=== PATIENT | female | born 1985 | race Hispanic/Latino ===

== ENCOUNTER 2022-11-13 21:08 | Emergency (ER) | payer BC ==
[2022-11-13 22:21] LABS: #Eosinphils 0.1 thou/uL (0.0-0.7); #Monocytes 0.7 thou/uL (0.11-0.59); #Neutrophils 9.9 thou/uL (1.40-6.50); %Basophils 0.1 % (0.0-1.0); %Eosinophils 0.7 % (0.0-10.0); %Lymphocytes 15.6 % (21.0-51.0); %Monocytes 5.6 % (0.0-10.0); %Neutrophils 77.7 % (42.0-75.0); Hemoglobin 14.1 g/dL (12.0-16.0); Mean Corpuscular HGB CONC 33.4 g/dL (32.0-36.0); Mean Corpuscular Hemoglobin 28.7 pg (27.0-31.0); Mean Corpuscular Volume 85.8 fl (78.0-98.0); Mean Platelet Volume 11.9 fL (7.4-10.4); Platelet Count 198 10x3/uL (130-400); RBC Distribution Width 13.3 % (11.5-14.5); Red Blood Cell (RBC) Count 4.92 mill/uL (4.20-5.40); White Blood Cell (WBC) Count 12.7 10x3/uL (4.8-10.8)
[2022-11-13 22:30] LABS: BHCG - Serum Negative (NEGATIVE); Pregs Control Background? CLEAR/WHITE (CLR/WHITE); Pregs Control Bar Appear? YES (CONTROL BAR)
[2022-11-13 22:36] LABS: Bilirubin Negative (Negative); Blood, Urine 3+ (Negative); CAUTI Indications for Culture Acute Hematuria; Clarity Extra Turbid (Clear); Glucose, Urine (Dipstick) Normal (Negative); Ketone, Urine Negative (Negative); Leukocyte 500 Leu/uL (Negative); Nitrite 1+ (Negative); Protein, Urine (Dipstick) 200 mg/dL (Neg-Trace); RBC/HPF Greater than 50 HPF (0-3); Specific Gravity, Urine 1.019 (1.002-1.036); WBC/HPF Greater than 50 HPF (0-3)
[2022-11-13 22:42] LABS: Bacteria/HPF 3+ HPF (None Seen); Squamous Epithelial 0-3 HPF (0-3)
[2022-11-13 22:43] LABS: Urine Culture Reflex Yes Yes
[2022-11-14] MEDS ORDERED: cefTRIAXone (ROCEPHIN) 250 MG VIAL ONE (01:23)
[2022-11-14] MEDS ORDERED: Ketorolac Tromethamine 30 MG/ML VIAL ONE (01:23)
[2022-11-14] MEDS ORDERED: Sterile Water 10 ML ONE (01:23)
== END 2022-11-14 01:55 | disposition home or self-care (01) ==
LOC: ERS 21:08
DX: N30.00 Acute cystitis without hematuria (principal); R30.0 Dysuria; D72.829 Elevated white blood cell count, unspecified
CPT/HCPCS: 36415; 81001; 84703; 85025; 87077; 87086; 96372; 99283; J0696; J1885